=== PATIENT | male | born 1985 | race Caucasian/White ===

== ENCOUNTER 2019-02-10 21:38 | Emergency (ER) | payer OTHER ==
[2019-02-10] MEDS ORDERED: Penicillin VK TAB* 250 MG PO ONE (22:34)
[2019-02-10] MEDS ORDERED: HYDROcodone/ACETAMIN 5-325 MG* 1 TAB PO ONE (22:34)
[2019-02-10] MEDS ORDERED: Ketorolac INJ* 30 MG/ML 1 ML VIAL IM ONE (22:34)
--- NOTE | 2019-02-10 22:36 | ED ---
Throat Pain/Nasal Congestion - HPI Summary HPI Summary: 33-year-old male presents with dental pain today. He states that he ate something any developed shooting pain in his left upper jaw. He states he has been using Orajel without relief. He denies any fever or chills. No swelling to the area. No difficulty swallowing. No chest pain or shortness breath. Has no medical conditions. Is from out of town. - History of Current Complaint Chief Complaint: EDDentalPain Time Seen by Provider: 02/10/19 22:12 - Allergies/Home Medications Allergies/Adverse Reactions: Allergies Allergy/AdvReac Type Severity Reaction Status Date / Time No Known Allergies Allergy Verified 02/10/19 22:22 PMH/Surg Hx/FS Hx/Imm Hx Endocrine/Hematology History: Denies: Hx Anticoagulant Therapy Respiratory History: Denies: Hx Asthma Infectious Disease History: No Infectious Disease History: Denies: Traveled Outside the in Last 30 Days - Family History Known Family History: Positive: Non-Contributory - Social History Alcohol Use: Occasionally Substance Use Type: Reports: None Smoking Status (MU): Never Smoked Tobacco Review of Systems Negative: Fever Positive: Dental Pain Negative: Chest Pain Negative: Shortness Of Breath All Other Systems Reviewed And Are Negative: Yes Physical Exam Triage Information Reviewed: Yes Vital Signs On Initial Exam: Initial Vitals Temp Pulse Resp BP Pulse Ox 98.1 F 82 16 173/94 100 02/10/19 21:40 02/10/19 21:40 02/10/19 21:40 02/10/19 21:40 02/10/19 21:40 Vital Signs Reviewed: Yes Appearance: Positive: Well-Appearing Skin: Positive: Warm, Dry Head/Face: Positive: Normal Head/Face Inspection Eyes: Positive: Normal, Conjunctiva Clear ENT: Positive: Pharynx normal Dental: Positive: Percussion Tenderness @ - 15 Respiratory/Lung Sounds: Positive: Clear to Auscultation, Breath Sounds Present Cardiovascular: Positive: Normal, RRR Musculoskeletal: Positive: Normal Neurological: Positive: Normal Psychiatric: Positive: Normal Diagnostics - Vital Signs Vital Signs Temp Pulse Resp BP Pulse Ox 02/10/19 21:40 98.1 F 82 16 173/94 100 - Laboratory Lab Statement: Any lab studies that have been ordered have been reviewed, and results considered in the medical decision making process. EENT Course/Dx - Course Course Of Treatment: 33-year-old male presents with dental pain today. He states that he ate something any developed shooting pain in his left upper jaw. He states he has been using Orajel without relief. He denies any fever or chills. No swelling to the area. No difficulty swallowing. No chest pain or shortness breath. Has no medical conditions. Is from out of town. On exam percussion tenderness tooth 15. No abscess noted. Will treat with penicillin given short course of pain medication. Told to follow up with dentist. Patient understands agrees with plan. - Differential Diagnoses Differential Diagnoses: Dental Abscess, Dental Caries, Fractured Tooth - Diagnoses Provider Diagnoses: Dental infection Discharge - Sign-Out/Discharge Documenting (check all that apply): Patient Departure Patient Received Moderate/Deep Sedation with Procedure: No - Discharge Plan Condition: Good Disposition: HOME Prescriptions: HYDROcodone/ACETAMIN 5-325 MG* [Buck[place] 5-325 TAB*] 1 tab PO Q6H PRN #8 tab MDD 4 PRN Reason: Pain - Severe Penicillin VK TAB* [Penicillin VK 250 mg Tab*] 500 mg PO QID #27 tab Patient Education Materials: Toothache (ED) [facility] - Additional Instructions: Take antibiotics: 4 times a day for 7 days, first dose given in ED Use ibuprofen every 6 hours and norco every 6 hours for break through pain Avoid hard, crunchy food until seen by dentist Follow up with dentist as soon as possible Return to ED if develop any new or worsening symptoms - Billing Disposition and Condition Condition: GOOD Disposition: Home
[2019-02-10] MEDS ORDERED: Ketorolac INJ* 30 MG/ML 1 ML VIAL ONE (22:43)
[2019-02-10 22:52] VITALS: BP 180/89
== END 2019-02-10 22:51 | disposition home or self-care (01) ==
LOC: ED 21:38
DX: K04.7 Periapical abscess without sinus (principal)
CPT/HCPCS: 96372; 99282; A9270-GY; J1885